=== PATIENT | female | born 1995 | race African-American/Black ===

== ENCOUNTER → 2018-03-24 | Outpatient (REF) | payer OTHER ==
[2018-03-24 17:56] LABS: CHLAMYDIA DNA AMPLIFICATION NEGATIVE (NEGATIVE); GC DNA AMPLIFICATION NEGATIVE (NEGATIVE)
== END ==
LOC: M SFHCLERA 13:23
DX: R30.0 Dysuria (principal)

== ENCOUNTER → 2018-06-08 | Outpatient (REF) | payer OTHER | LOC: M SFHCLERA 18:19 | DX: N89.8 Other specified noninflammatory disorders of vagina (principal) ==